=== PATIENT | female | born 1965 | race Caucasian/White ===

== ENCOUNTER 2018-01-07 11:23 | Emergency (ER) | payer BC, MEDICAID ==
[2018-01-07 12:43] LABS: ABSOLUTE BASOPHILS # (AUTO) 0.1 10^3/uL (0.0-0.2); ABSOLUTE EOSINOPHILS # (AUTO) 0.2 10^3/uL (0.0-0.6); ABSOLUTE MONOCYTES (AUTO) 0.8 10^3/uL (0.1-1.4); ABSOLUTE NEUT (AUTO) 7.9 10^3/uL (1.7-8.2); BASOPHILS % (AUTO) 0.8 % (0-2); EOSINOPHILS % (AUTO) 1.4 % (0-6); HEMATOCRIT 42.6 % (36.0-47.0); HEMOGLOBIN 14.4 g/dL (12.0-15.5); LYMPHOCYTES % (AUTO) 18.5 % (13-45); MEAN CORPUSCULAR HEMOGLOBIN 28.9 pg (27.0-33.4); MEAN CORPUSCULAR HGB CONC 33.8 g/dL (32.0-36.0); MEAN CORPUSCULAR VOLUME 85 fl (80-97); MONOCYTES % (AUTO) 7.4 % (3-13); PLATELET COUNT 327 10^3/uL (150-450); RED BLOOD COUNT 4.99 10^6/uL (3.72-5.28); RED CELL DISTRIBUTION WIDTH 13.6 % (11.5-14.0); SEGMENTED NEUTROPHILS % (AUTO) 71.9 % (42-78); TOTAL CELLS COUNTED % (AUTO) 100 %; WHITE BLOOD COUNT 10.9 10^3/uL (4.0-10.5)
[2018-01-07] MEDS ORDERED: AMLODIPINE BESYLATE 5 MG TABLET PO ONE (12:58)
[2018-01-07 13:11] LABS: ANION GAP 11 (5-19); BLOOD UREA NITROGEN 11 mg/dL (7-20); CARBON DIOXIDE 27 mmol/L (22-30); CHLORIDE 102 mmol/L (98-107); GLUCOSE 271 mg/dL (75-110); POTASSIUM 3.9 mmol/L (3.6-5.0)
--- NOTE | 2018-01-07 13:51 | ER Document Report ---
ED General - General Chief Complaint: High Blood Pressure Stated Complaint: BLOOD PRESSURE ISSUES Time Seen by Provider: 01/07/18 12:19 TRAVEL OUTSIDE OF THE [place]. IN LAST 30 DAYS: No - HPI Patient complains to provider of: High blood pressure Notes: Patient was recently seen by her upLeonardo told more likely she has high blood pressure. Patient went to her soon-to-be PCPs office today requesting that her blood pressure rechecked they checked it and was found to be elevated 170-180 systolic and was told to come to the ER for further evaluation. Upon my evaluation patient resting comfortably states that she is is concerned and blood pressure is elevated she has never been on any medications patient does smoke does not drink does not do drugs. Patient denies any hip pain chest pain abdominal pain nausea vomiting fevers chills dizziness lightheadedness. Patient is resting comfortably - Related Data Allergies/Adverse Reactions: sulfamethoxazole [From Mayra] Allergy (Verified 01/07/18 11:56) trimethoprim [From Mayra] Allergy (Verified 01/07/18 11:56) Past Medical History - Social History Smoking Status: Never Smoker Chew tobacco use (# tins/day): No Frequency of alcohol use: None Drug Abuse: None Family History: Reviewed & Not Pertinent Patient has suicidal ideation: No Patient has homicidal ideation: No Renal/ Medical History: Denies: Hx Peritoneal Dialysis Past Surgical History: Reports: Hx Section - x1 Review of Systems - Review of Systems Constitutional: Other - Hypertension EENT: No symptoms reported Cardiovascular: No symptoms reported Respiratory: No symptoms reported Gastrointestinal: No symptoms reported Genitourinary: No symptoms reported Female Genitourinary: No symptoms reported Musculoskeletal: No symptoms reported Skin: No symptoms reported Hematologic/Lymphatic: No symptoms reported Neurological/Psychological: No symptoms reported Physical Exam - Vital signs Vitals: Temp Pulse Resp BP Pulse Ox 98.2 F 97 22 H 216/87 H 97 01/07/18 11:40 01/07/18 11:40 01/07/18 11:40 01/07/18 11:40 01/07/18 11:40 Interpretation: Hypertensive - General General appearance: Appears well, Alert - HEENT Head: Normocephalic, Atraumatic Eyes: Normal Pupils: PERRL - Respiratory Respiratory status: No respiratory distress Chest status: Nontender Breath sounds: Normal Chest palpation: Normal - Cardiovascular Rhythm: Regular Heart sounds: Normal auscultation Murmur: No - Abdominal Inspection: Normal Distension: No distension Bowel sounds: Normal Tenderness: Nontender Organomegaly: No organomegaly - Back Back: Normal, Nontender - Extremities General upper extremity: Normal inspection, Nontender, Normal color, Normal ROM , Normal temperature General lower extremity: Normal inspection, Nontender, Normal color, Normal ROM , Normal temperature, Normal weight bearing. No: Akila's sign - Neurological Neuro grossly intact: Yes Cognition: Normal Orientation: AAOx4 Gallo Coma Scale Eye Opening: Spontaneous [place] Coma Scale Verbal: Oriented [place] Coma Scale Motor: Obeys Commands [place] Coma Scale Total: 15 Speech: Normal Motor strength normal: LUE, RUE, LLE, RLE Sensory: Normal - Psychological Associated symptoms: Normal affect, Normal mood - Skin Skin Temperature: Warm Skin Moisture: Dry Skin Color: Normal Course - Re-evaluation Re-evalutation: 01/07/18 15:15 Patient with a symptomatically hypertension with elevated blood glucose however patient states that she normally drinks honey and vinegar at home 3 times a day. Patient blood pressure did respond to amlodipine patient states that she has very limited funds therefore I will discharge patient home with a prescription for hydrochlorthiazide patient has an appointment follow-up with her new PCP on Wednesday or next week. Otherwise again patient has a systematic hypertension - Vital Signs Vital signs: Temp Pulse Resp BP Pulse Ox 98.2 F 97 22 H 216/87 H 97 01/07/18 11:40 01/07/18 11:40 01/07/18 11:40 01/07/18 11:40 01/07/18 11:40 - Laboratory Result Diagrams: 01/07/18 12:28 01/07/18 12:28 Laboratory results interpreted by me: 01/07/18 01/07/18 12:28 12:28 WBC 10.9 H Creatinine 0.50 L Glucose 271 H Discharge - Discharge Clinical Impression: Hypertension Qualifiers: Hypertension type: essential hypertension Qualified Code(s): I10 - Essential ( primary) hypertension Instructions: High Blood Pressure, Requiring Treatment ([facility]), Hydrochlorothiazide ([facility]) Additional Instructions: Follow-up with your primary care physician. At this time your laboratory studies and EKG did not show any concerning pathology. Please return to ER symptoms worsen. Take the Hydrocort thiazide for your blood pressure until you follow-up with your primary care physician. Prescriptions: Hydrochlorothiazide 25 mg PO DAILY #30 tablet Forms: Return to Work, Elevated Blood Pressure, Work Clearance Referrals: MARAL RODRIGUEZ PA [Primary Care Provider] - Follow up in 1 week
[2018-01-07 14:17] VITALS: BP 181/81
--- NOTE | 2018-01-07 21:17 | EKG REPORT ---
SEVERITY:- ABNORMAL ECG - SINUS RHYTHM PROBABLE LEFT ATRIAL ABNORMALITY NONSPECIFIC INTRAVENTRICULAR CONDUCTION DELAY LEFT VENTRICULAR HYPERTROPHY BORDERLINE T ABNORMALITIES, ANT-LAT LEADS : Confirmed by: Yovana Fine 07-Jan-2018 21:17:04
--- NOTE | 2018-01-08 09:19 | EKG REPORT ---
SEVERITY:- ABNORMAL ECG - SINUS RHYTHM PROBABLE LEFT ATRIAL ABNORMALITY NONSPECIFIC INTRAVENTRICULAR CONDUCTION DELAY LEFT VENTRICULAR HYPERTROPHY : Confirmed by: Yovana Fine 08-Jan-2018 09:18:53
== END 2018-01-07 14:26 | disposition home or self-care (01) ==
LOC: ER 11:23
DX: I10 Essential (primary) hypertension (principal)
CPT/HCPCS: 36415; 80048; 85025; 93005; 93010; 99284

== ENCOUNTER 2018-01-16 14:13 | Emergency (ER) | payer BC ==
--- NOTE | 2018-01-16 16:01 | ER Document Report ---
ED Medical Screen (RME) - General TRAVEL OUTSIDE OF THE [place]. IN LAST 30 DAYS: No <ELENA SPRINGER - Last Filed: 01/16/18 15:59> <FAY BUSTOS - Last Filed: 01/16/18 18:38> - General Chief Complaint: Dizziness Stated Complaint: DIZZINESS Time Seen by Provider: 01/16/18 15:56 Notes: Patient is here to be seen for 2 problems. She says that she has been vomiting and having pain in the epigastric region of her abdomen for about a year. It comes and goes, this episode starting 2 days ago, on Wednesday, she feels a pressure in that area. In addition, patient is experiencing dizziness all the time since about Wednesday. She was seen here about 9 days ago and subsequently by her primary care provider on Wednesday and was started on lisinopril for her blood pressure, but her dizziness has persisted. She vomited Wednesday and today. Had diarrhea yesterday. Denies any chest pains. No fevers. No loss of consciousness. ( ELENA SPRINGER) - Related Data Allergies/Adverse Reactions: sulfamethoxazole [From Septra] Allergy (Verified 01/16/18 14:14) trimethoprim [From Mayra] Allergy (Verified 01/16/18 14:14) Past Medical History - Social History Chew tobacco use (# tins/day): No Frequency of alcohol use: Occasional Drug Abuse: None - Past Medical History Cardiac Medical History: Reports: Hx Hypertension Pulmonary Medical History: Reports: Hx Pneumonia Renal/ Medical History: Denies: Hx Peritoneal Dialysis Past Surgical History: Reports: Hx Section - x1 <ELENA SPRINGER - Last Filed: 01/16/18 15:59> - Vital signs Vitals: Temp Pulse Resp BP Pulse Ox 98.3 F 106 H 16 155/85 H 97 01/16/18 14:22 01/16/18 14:22 01/16/18 14:22 01/16/18 14:22 01/16/18 14:22 Course <ELENA SPRINGER - Last Filed: 01/16/18 15:59> - Laboratory Result Diagrams: 01/16/18 16:35 01/16/18 16:35 <FAY BUSTOS - Last Filed: 01/16/18 18:38> - Re-evaluation Re-evalutation: 01/16/18 18:38 Patient still denies any current pain at this time. No tenderness to repeat palpation of the right upper quadrant. (FAY BUSTOS) - Vital Signs Vital signs: Temp Pulse Resp BP Pulse Ox 98.3 F 106 H 16 161/100 H 92 01/16/18 14:22 01/16/18 14:22 01/16/18 14:22 01/16/18 17:57 01/16/18 18:00 - Laboratory Laboratory results interpreted by me: 01/16/18 01/16/18 01/16/18 16:25 16:35 16:35 WBC 13.8 H RBC 5.63 H Hgb 16.1 H Hct 48.2 H Absolute Neutrophils 9.0 H Sodium 136.9 L Chloride 89 L Carbon Dioxide 37 H Glucose 398 H Urine Protein 30 H Urine Glucose (UA) >=500 H Urine Urobilinogen 2.0 H Doctor's Discharge <ELENA SPRINGER - Last Filed: 01/16/18 15:59> <FAY BUSTOS - Last Filed: 01/16/18 18:38> - Discharge Clinical Impression: Hyperglycemia, Epigastric abdominal pain, NSTEMI (non-ST elevated myocardial infarction), Gall stones Condition: Fair Disposition: [facility] Additional Instructions: Please continue the antibiotics as prescribed. Please make sure that she return immediately with any weakness or numbness, chest pain, return or change in location of abdominal pain, fevers, or any other acute problems. Please make sure that you expedite follow-up with your primary care physician for reassessment of your blood glucose as well as your electrolytes and blood pressure as we have discussed. Prescriptions: Metformin HCl [Glucophage 500 mg Tablet] 500 mg PO BID #60 tablet
[2018-01-16] MEDS ORDERED: NORMAL SALINE 1000 ML 1,000 ML IV ONE ×2 (16:59→17:24)
[2018-01-16 17:02] LABS: ABSOLUTE BASOPHILS # (AUTO) 0.1 10^3/uL (0.0-0.2); ABSOLUTE EOSINOPHILS # (AUTO) 0.1 10^3/uL (0.0-0.6); ABSOLUTE LYMPHOCYTES (AUTO) 3.4 10^3/uL (0.5-4.7); ABSOLUTE MONOCYTES (AUTO) 1.1 10^3/uL (0.1-1.4); BASOPHILS % (AUTO) 0.7 % (0-2); EOSINOPHILS % (AUTO) 0.9 % (0-6); HEMATOCRIT 48.2 % (36.0-47.0); HEMOGLOBIN 16.1 g/dL (12.0-15.5); MEAN CORPUSCULAR HEMOGLOBIN 28.6 pg (27.0-33.4); MEAN CORPUSCULAR HGB CONC 33.4 g/dL (32.0-36.0); MEAN CORPUSCULAR VOLUME 86 fl (80-97); PLATELET COUNT 424 10^3/uL (150-450); RED BLOOD COUNT 5.63 10^6/uL (3.72-5.28); RED CELL DISTRIBUTION WIDTH 13.1 % (11.5-14.0); SEGMENTED NEUTROPHILS % (AUTO) 65.4 % (42-78); TOTAL CELLS COUNTED % (AUTO) 100 %; WHITE BLOOD COUNT 13.8 10^3/uL (4.0-10.5)
[2018-01-16 17:04] LABS: AMORPHOUS SEDIMENT,URINE TRACE /HPF; APPEARANCE,URINE CLOUDY; BILIRUBIN,URINE NEGATIVE (NEGATIVE); COLOR,URINE YELLOW; GLUCOSE, URINE >=500 mg/dL (NEGATIVE); KETONES,URINE NEGATIVE (NEGATIVE); LEUKOCYTE ESTERASE,URINE NEGATIVE (NEGATIVE); NITRITE,URINE NEGATIVE (NEGATIVE); PROTEIN,URINE 30 mg/dL (NEGATIVE); URINE SPECIFIC GRAVITY 1.028
[2018-01-16 17:17] LABS: ALANINE AMINOTRANSFERASE 30 U/L (9-52); ALBUMIN 4.2 g/dL (3.5-5.0); ALKALINE PHOSPHATASE 96 U/L (38-126); ANION GAP 11 (5-19); ASPARTATE AMINO TRANSFERASE 23 U/L (14-36); BILIRUBIN,DIRECT 0.3 mg/dL (0.0-0.4); BILIRUBIN,TOTAL 0.3 mg/dL (0.2-1.3); BLOOD UREA NITROGEN 17 mg/dL (7-20); CALCIUM 10.2 mg/dL (8.4-10.2); CARBON DIOXIDE 37 mmol/L (22-30); CHLORIDE 89 mmol/L (98-107); GLUCOSE 398 mg/dL (75-110); LIPASE 255.2 U/L (23-300); POTASSIUM 3.7 mmol/L (3.6-5.0); SODIUM 136.9 mmol/L (137-145); TOTAL PROTEIN 7.9 g/dL (6.3-8.2)
--- NOTE | 2018-01-16 17:24 | ER Document Report ---
ED General - General Chief Complaint: Dizziness Stated Complaint: DIZZINESS Time Seen by Provider: 01/16/18 15:56 Information source: Patient Notes: Patient is a 52-year-old female with past medical history of recently diagnosed high blood pressure. Patient was seen at her primary care physician's office about 1 week ago and was diagnosed with a blood pressure around 180. She was sent here for further evaluation and had a fairly unremarkable workup and was started on hydrochlorothiazide. She followed up with her primary care physician on Wednesday and he changed her medications. She states that she has felt "a little fuzzy" all week. She denies any blurry vision, neck pain, chest pain, weakness or numbness to the extremities. She states she has a mild frontal intermittent headache with some bilateral facial "numbness". She denies any slurred speech. She states it is equal to bilateral facial regions. She states she has a long history of migraines at present very similarly. Furthermore the patient states she has had some mild epigastric nonradiating abdominal "discomfort" for the last 2 days. She did vomit without any diarrhea or fevers. She denies any lower abdominal pain. She denies any exacerbation with eating. Patient states she has the symptomatology around 1 time every few months with an unknown etiology. She is concerned about her gallbladder. TRAVEL OUTSIDE OF THE [place] IN LAST 30 DAYS: No - HPI Onset: Other - See above Quality of pain: Achy Severity: Mild Pain Level: 1 Associated symptoms: Other - See above Exacerbated by: Denies Relieved by: Denies Similar symptoms previously: Yes Recently seen / treated by doctor: Yes - Related Data Allergies/Adverse Reactions: sulfamethoxazole [From Septra] Allergy (Verified 01/16/18 14:14) trimethoprim [From Septra] Allergy (Verified 01/16/18 14:14) Past Medical History - General Information source: Patient - Social History Smoking Status: Unknown if Ever Smoked Cigarette use (# per day): No Chew tobacco use (# tins/day): No Smoking Education Provided: No Frequency of alcohol use: Occasional Drug Abuse: None Family History: Reviewed & Not Pertinent Patient has suicidal ideation: No Patient has homicidal ideation: No - Past Medical History Cardiac Medical History: Reports: Hx Hypertension Pulmonary Medical History: Reports: Hx Pneumonia Renal/ Medical History: Denies: Hx Peritoneal Dialysis Past Surgical History: Reports: Hx Section - x1 Review of Systems - Review of Systems Constitutional: denies: Fever EENT: denies: Eye discharge, Nose discharge Cardiovascular: denies: Chest pain, Palpitations Respiratory: denies: Cough, Short of breath Gastrointestinal: Vomiting. denies: Diarrhea Genitourinary: denies: Dysuria Musculoskeletal: denies: Leg swelling Skin: Other - no hives. denies: Rash Neurological/Psychological: Other - no slurred speech -: Yes All other systems reviewed and negative Physical Exam - Vital signs Vitals: Temp Pulse Resp BP Pulse Ox 98.3 F 106 H 16 155/85 H 97 01/16/18 14:22 01/16/18 14:22 01/16/18 14:22 01/16/18 14:22 01/16/18 14:22 Notes: Reviewed vital signs and nursing note as charted by RN. CONSTITUTIONAL: Alert and oriented and responds appropriately to questions. Well -appearing; well-nourished HEAD: Normocephalic; atraumatic EYES: PERRL; Conjunctivae clear, sclerae non-icteric ENT: Normal nose; no rhinorrhea; moist mucous membranes; pharynx without lesions noted; patient has no mastoid swelling or tenderness. I do not detect any auditory canal lesions or tympanic membrane lesions NECK: Supple without meningismus; non-tender; no cervical lymphadenopathy, no masses CARD: Regular rate and rhythm; no murmurs, no clicks, no rubs, no gallops; symmetric distal pulses RESP: Normal chest excursion without splinting or tachypnea; breath sounds clear and equal bilaterally ABD/GI: Normal bowel sounds; non-distended; soft, very mild tenderness to the epigastric region without any rebound or guarding. There is a negative Lopez sign BACK: The back appears normal and is non-tender to palpation, there is no CVA tenderness EXT: Normal ROM in all joints; non-tender to palpation; no cyanosis, no effusions, no edema SKIN: No acute lesions noted NEURO: CN II through XII are intact. Patient has 5 out of 5 bilateral upper and lower extremity strength with sensation intact light touch. I do not detect any facial numbness at this time PSYCH: The patient's mood and manner are appropriate. Grooming and personal hygiene are appropriate. Course - Re-evaluation Re-evalutation: 01/16/18 17:22 Given the patient's history and physical, repeat visit, multiple symptomatology complaints, I will obtain a cardiac panel, liver panel, lipase, CT scan of the head, and ultrasound of the gallbladder at patient's request. EKG shows a heart of 97, normal sinus rhythm, minimal left axis deviation, minimal LVH, poor R-wave progression, inverted T waves in leads I, II and v5/v6 , no obvious ST elevation. Minimal depressions in lead V6, less than 1 mm in amplitude. Patient's previous EKG from 1 week ago shows no obvious appreciable change with now an inverted T wave in I. 01/16/18 17:25 Patient's labs and glucose as recorded. Patient has recently been placed on hydrochlorothiazide. I have provided a liter of normal saline. I do believe that the patient, with to repeat elevated blood sugars, most likely is suffering from diabetes. I believe that the patient may benefit from metformin. I believe this may be the etiology of some of her symptomatology. Patient still denies any pain to the abdomen or chest. 01/16/18 17:44 Patient troponin as recorded. Patient denies any chest pain. Vital signs as recorded. I have already provided a liter of fluid and metformin for the glucose. I will provide aspirin and will transfer the patient. I will talk to the potato loader about whether he would like heparin or Lovenox. Given the current heart rate of 82, no sob, no back pain, I believe AD and PE to be extremely unlikely. 01/16/18 17:55 Gallbladder ultrasound as recorded. Normal gallbladder thickness with no pericholecystic fluid. They report a positive Lopez sign. I do not detect any right upper quadrant tenderness on my examination. Given the patient's cardiac panel, with transfer initiated, I will relay this information to the cardiology team. 01/16/18 18:02 I have spoken to the fellow, Dr. Nicole, who is very polite at [facility]. I have explained the patient's troponin that is greater than 3 times upper limit of normal as well as the epigastric pain radiating to the chest. The patient does have gallstones but there is no gallbladder wall thickening or pericholecystic fluid. The patient's liver panel and lipase within normal limits. I do believe that the patient possibly may need a general surgery consult, but given that we do not perform cardiac catheterizations here at this facility, the hospitalist team and the potato loader are unwilling to accept this patient at this time. I will proceed with aspirin Lovenox. - Vital Signs Vital signs: Temp Pulse Resp BP Pulse Ox 98.3 F 106 H 16 155/85 H 97 01/16/18 14:22 01/16/18 14:22 01/16/18 14:22 01/16/18 14:22 01/16/18 14:22 - Laboratory Result Diagrams: 01/16/18 16:35 01/16/18 16:35 Laboratory results interpreted by me: 01/16/18 01/16/18 01/16/18 16:25 16:35 16:35 WBC 13.8 H RBC 5.63 H Hgb 16.1 H Hct 48.2 H Absolute Neutrophils 9.0 H Sodium 136.9 L Chloride 89 L Carbon Dioxide 37 H Glucose 398 H Urine Protein 30 H Urine Glucose (UA) >=500 H Urine Urobilinogen 2.0 H Critical Care Note - Critical Care Note Total time excluding time spent on procedures (mins): 35 Discharge - Discharge Clinical Impression: Hyperglycemia, Epigastric abdominal pain, NSTEMI (non-ST elevated myocardial infarction), Gall stones Condition: Fair Disposition: [facility] Additional Instructions: Please continue the antibiotics as prescribed. Please make sure that she return immediately with any weakness or numbness, chest pain, return or change in location of abdominal pain, fevers, or any other acute problems. Please make sure that you expedite follow-up with your primary care physician for reassessment of your blood glucose as well as your electrolytes and blood pressure as we have discussed. Prescriptions: Metformin HCl [Glucophage 500 mg Tablet] 500 mg PO BID #60 tablet
[2018-01-16 17:29] LABS: CREATINE KINASE MB 0.82 ng/mL (<4.55)
[2018-01-16] MEDS ORDERED: METFORMIN HCL 500 MG TABLET PO ONE (17:31)
[2018-01-16 17:37] LABS: TROPONIN I 0.319 ng/mL
[2018-01-16] MEDS ORDERED: ASPIRIN 325 MG TABLET PO ONE (17:44)
--- NOTE | 2018-01-16 17:51 | RADIOLOGY REPORT (SQ) ---
EXAM DESCRIPTION: U/S ABDOMEN LIMITED W/O DOP COMPLETED DATE/TIME: 01/16/2018 5:32 pm REASON FOR STUDY: 14, pain COMPARISON: None. TECHNIQUE: Dynamic and static grayscale images acquired of the abdomen and recorded on PACS. Additio nal selected color Doppler and spectral images recorded. LIMITATIONS: None. FINDINGS: PANCREAS: No masses. Visualized pancreatic duct normal caliber. LIVER: No masses. Echotexture normal. LIVER VASCULATURE: Normal directional flow of the main portal vein and hepatic veins. GALLBLADDER: 2.4 cm stone. Normal wall thickness. No pericholecystic fluid. ULTRASOUND-DETECTED LOPEZ'S SIGN: Positive INTRAHEPATIC DUCTS AND COMMON DUCT: CBD and intrahepatic ducts normal caliber. No filling defects. INFERIOR VENA CAVA: Normal flow. AORTA: No aneurysm. RIGHT KIDNEY: Normal size. Normal echogenicity. No solid or suspicious masses. No hydronephrosis. No calcifications. PERITONEAL AND RIGHT PLEURAL SPACE: No ascites or effusions. OTHER: No other significant findings. IMPRESSION: 2.4 cm Gallstone and positive Lopez sign reported. Consider surgical consultation. TECHNICAL DOCUMENTATION: JOB ID: [id number] [place]-72 2010 [employer]- All Rights Reserved Reading location - IP/workstation name: [email or web address]
--- NOTE | 2018-01-16 17:57 | EKG REPORT ---
SEVERITY:- ABNORMAL ECG - SINUS RHYTHM PROBABLE LEFT ATRIAL ABNORMALITY LEFT VENTRICULAR HYPERTROPHY WITH SECONDARY ST-T CHANGES. : Confirmed by: Raulito Mckeon MD 16-Jan-2018 17:57:18
[2018-01-16] MEDS ORDERED: ENOXAPARIN SODIUM INJ 100 MG/1 ML DISP.SYRIN SUBCUT SCH ×2 (18:00→18:30)
[2018-01-16 18:10] LABS: INTERNATIONAL RATION (INR) 0.92; PROTHROMBIN TIME 12.8 SEC (11.4-15.4)
[2018-01-16 18:12] VITALS: BP 161/100
[2018-01-16] MEDS ORDERED: METOPROLOL TARTRATE 25 MG TABLET PO ONE (18:33)
--- NOTE | 2018-01-16 18:36 | RADIOLOGY REPORT (SQ) ---
EXAM DESCRIPTION: CT HEAD WITHOUT COMPLETED DATE/TIME: 01/16/2018 6:18 pm REASON FOR STUDY: 14, pain COMPARISON: None. TECHNIQUE: Axial images acquired through the brain without intravenous contrast. Images reviewed wi th bone, brain and subdural windows. Images stored on PACS. All CT scanners at this facility use dose modulation, iterative reconstruction, and/or weight based d osing when appropriate to reduce radiation dose to as low as reasonably achievable (ALARA). [facility]: Dose Right [facility]: CareDose [facility]: Dose Right [facility]: Teradose 4D [facility]: Smart [email or web address] RADIATION DOSE: CT Rad equipment meets quality standard of care and radiation dose reduction techniq ues were employed. CTDIvol: 53.2 mGy. DLP: 964 mGy-cm. mGy. LIMITATIONS: None. FINDINGS: VENTRICLES: Normal size and contour. CEREBRUM: 12 mm hypodensity in the anterior-medial left occipital lobe, possible old small vessel isc hemic change. No hemorrhage. No midline shift. Otherwise Preserved haider/white matter differentiati on. CEREBELLUM: No masses. No hemorrhage. No alteration of density. No evidence for acute infarction. EXTRAAXIAL SPACES: No fluid collections. No masses. ORBITS AND GLOBE: No intra- or extraconal masses. Normal contour of globe without masses. CALVARIUM: No fracture. PARANASAL SINUSES: No fluid or mucosal thickening. SOFT TISSUES: No mass or hematoma. OTHER: No other significant finding. IMPRESSION: 12 mm hypodensity in the anterior-medial left occipital lobe, possible old small vessel ischemic change. No hemorrhage. EVIDENCE OF ACUTE STROKE: NO. COMMENT: Quality ID # [id number]: Final reports with documentation of one or more dose reduction techniques (e.g., Automated exposure control, adjustment of the mA and/or kV according to patient size, use of iterative reconstruction technique) TECHNICAL DOCUMENTATION: JOB ID: [id number] [place]-72 2010 [employer]- All Rights Reserved Reading location - IP/workstation name: [email or web address]
== END 2018-01-16 19:10 | disposition short-term general hospital (02) ==
LOC: ER 14:13
DX: I21.4 Non-ST elevation (NSTEMI) myocardial infarction (principal); R73.9 Hyperglycemia, unspecified; K80.80 Other cholelithiasis without obstruction; R10.13 Epigastric pain; R42 Dizziness and giddiness; I10 Essential (primary) hypertension; R51 Headache
CPT/HCPCS: 93005; 99291; 96372; 96360; 36415; 82553; 83690; 85025; 85610; 80053; 81001; 84484; 76705; 70450; 93010; J7030; J1650

== ENCOUNTER 2018-04-14 08:10 | Emergency (ER) | payer BC, OTHER ==
--- NOTE | 2018-04-14 09:12 | ER Document Report ---
HPI - HPI Patient complains to provider of: Right wrist pain Onset: Other - Wednesday Onset/Duration: Persistent, Worse Pain Level: 4 Context: 53-year-old female complaining of worsening distal right radius wrist pain since Wednesday that radiates up to elbow with movement. She visited her grandchildren. No history of gout. She does have diabetes, hypertension, and coronary artery disease with 2 stents. She states it is swollen and hurts to move it. There was no injury. She does take a new generation anticoagulant twice a day but does not remember the name of it. Associated Symptoms: None Exacerbated by: Movement Relieved by: Denies Similar symptoms previously: No Recently seen / treated by doctor: No - ROS ROS below otherwise negative: Yes Systems Reviewed and Negative: Yes All other systems reviewed and negative Past Medical History - General Information source: Patient - Social History Smoking Status: Never Smoker Frequency of alcohol use: None Drug Abuse: None Lives with: Family Family History: Reviewed & Not Pertinent - Past Medical History Cardiac Medical History: Reports: Hx Coronary Artery Disease, Hx Hypertension Pulmonary Medical History: Reports: Hx Pneumonia Endocrine Medical History: Reports: Hx Diabetes Mellitus Type 2 Renal/ Medical History: Denies: Hx Peritoneal Dialysis Past Surgical History: Reports: Hx Section - x1, Hx Coronary Stent Vertical Provider Document - CONSTITUTIONAL Agree With Documented VS: Yes Exam Limitations: No Limitations General Appearance: Mild Distress - INFECTION CONTROL TRAVEL OUTSIDE OF THE [place] IN LAST 30 DAYS: No - MUSCULOSKELETAL/EXTREMETIES Musculoskeletal/Extremeties: Tender, Edema - distal right radius, 2+ radial pulse Notes: Minimally warm without erythema over the volar lateral radius, nontender snuffbox., Neurovascular intact distal to the location of the pain - NEURO Level of Consciousness: Alert Motor/Sensory: No Motor Deficit, No Sensory Deficit - DERM Integumentary: No Rash Course - Re-evaluation Re-evalutation: 04/14/18 10:59 The splint and sling feels a lot better to her. The uric acid is negative. Diagnosis is tendinitis. X-ray shows some old bony densities but there is no acute fracture per radiologist. - Vital Signs Vital signs: Temp Pulse Resp BP Pulse Ox 98.7 F 86 20 172/78 H 100 04/14/18 08:29 04/14/18 08:29 04/14/18 08:29 04/14/18 08:29 04/14/18 08:29 Procedures - Immobilization Right Wrist Time completed: 11:01 Pre-Proc Neuro Vasc Exam: Normal Immobilizer type: Cock-up, Sling Performed by: PCT Post-Proc Neuro Vasc Exam: Normal Discharge - Discharge Clinical Impression: Right wrist tendinitis Condition: Good Disposition: HOME, SELF-CARE Instructions: Acetaminophen, Temporary Sling ([facility]), Temporary Splint ([facility]), Tendonitis ([facility]) Additional Instructions: Tylenol up to 4000 mg/day for pain Splint for comfort Elevate Cool compress Uric acid was negative See your primary care at [facility] for follow-up
[2018-04-14] MEDS ORDERED: ACETAMINOPHEN 325 MG TABLET PO ONE (09:21)
[2018-04-14] MEDS ORDERED: IBUPROFEN 400 MG TABLET PO ONE (09:21)
--- NOTE | 2018-04-14 09:52 | RADIOLOGY REPORT (SQ) ---
EXAM DESCRIPTION: WRIST RIGHT 3 VIEWS COMPLETED DATE/TIME: 04/14/2018 9:38 am REASON FOR STUDY: pain COMPARISON: None. NUMBER OF VIEWS: Four views. TECHNIQUE: AP, lateral, oblique, and scaphoid radiographic images acquired of the right wrist. LIMITATIONS: None. FINDINGS: MINERALIZATION: Normal. BONES: No acute fracture or dislocation. No worrisome bone lesions. Normal alignment. No significant osteophytes. JOINTS: No erosions. No musa-articular osteopenia. No chondrocalcinosis. SOFT TISSUES: No swelling. Soft tissue calcifications. OTHER: No other significant finding. IMPRESSION: SOFT TISSUE CALCIFICATIONS. NO SIGNIFICANT BONY FINDINGS. TECHNICAL DOCUMENTATION: JOB ID: [id number] [employer]- All Rights Reserved Reading location - IP/workstation name: [email or web address]
[2018-04-14 10:19] VITALS: BP 129/62
== END 2018-04-14 11:09 | disposition home or self-care (01) ==
LOC: ER 08:10
DX: M77.9 Enthesopathy, unspecified (principal); M25.531 Pain in right wrist; E11.9 Type 2 diabetes mellitus without complications; I10 Essential (primary) hypertension; I25.10 Atherosclerotic heart disease of native coronary artery without angina pectoris
CPT/HCPCS: 99284; 36415; 84550; 73110; L3908; J3490